=== PATIENT | male | born 1930 | race Caucasian/White ===

== ENCOUNTER 2017-03-19 15:36 | Inpatient (IN) | payer OTHER ==
[~2017-03-19] VITALS: Ht 177.8 cm; Wt 81.6 kg
--- NOTE | ~2017-03-19 | EEG ---
[facility] [place] [address] ELECTROENCEPHALOGRAM Name: NILA BABB Room #: 352-P ADM IN M.R.#: [id number] Admission: 03/19/17 Attend Phys: Ani Vasquez MD Discharge: Date of : 31 Report #: [id number] THIS REPORT FOR: //name// CC: Marciano Kathleen DATE OF SERVICE: 03/21/2017 This patient is being evaluated for altered mental status. EEG was done by placing the electrodes by standard 10-20 system of electrode placement. Both referential and sequential montages were used for recording. Background activity in this patient's EEG is about 7-8 Hz and 30 microvolt. Photic stimulation is unremarkable. No active epileptiform activity was noticed. IMPRESSION: This is an abnormal EEG, which typically occur with encephalopathy. However, is a nonspecific finding and it can occur with multiple other etiologies like effect of psychotropic medication, dementia, etc. Clinical correlation is recommended. Thank you very much for this referral. <ELECTRONICALLY SIGNED> By: Edward Gomez MD 03/24/17 0732 1704 1717 Edward Gomez MD /nt
--- NOTE | ~2017-03-19 | HC ---
[facility] [place] [address] CONSULTATION Name: BABBNILA Das Room #: 352-P ADM IN M.R.#: [id number] Admission: 03/19/17 Attend Phys: Ani Vasquez MD Discharge: Date of : 31 Report #: [id number] THIS REPORT FOR: //name// CC: Marciano Kathleen DATE OF SERVICE: 03/20/2017 HISTORY OF PRESENT ILLNESS: This is an 86-year-old male patient who was evaluated by me for any neurological etiology for the patient's altered mental status. This patient was living by himself. He fell down on Wednesday. He was admitted to an outside hospital. It is not clear whether he hit his head or not. He does not remember much about the fall because he is still not out. They did a hip surgery on him on Wednesday. He never became responsive after that. He continued to be drowsy, but he has shown a trend towards improvement. The best the family can tell there was no trauma to the head. REVIEW OF SYSTEMS: Extensive in this patient. He has a history of neuropathy, but he is not a diabetic according to the family. He has tremors and he has seen a neurologist in that regard. He had kidney stones and he had cardiac stents in the past. He apparently has a history of COPD. He does have a history of dementia, but the family indicates that it is mainly remembering the dates, which has been problem. He recently had a skin cancer removed from his face. This was the relevant 14-point review of systems, which I carried out with the family. PAST MEDICAL HISTORY: Negative for stroke or TIA. FAMILY HISTORY: Negative for early age stroke. SOCIAL HISTORY: He does not drink any alcohol or smoke. PHYSICAL EXAMINATION: Pretty limited because he is still drowsy, he is sleepy, but he wakes up. When he wakes up, he is able to recognize his sister. His speech looks somewhat slurred and difficult to understand. This has been going on at least since Wednesday. He did not know what month was it. His memory and fund of knowledge is poor. His cranial nerve examination 2-12 was attempted. It was very difficult to carry out, but I do not see any gross abnormality. He moves his upper extremities. He can wiggle his toes, but quantification of the strength is not possible. Similarly, I could not do a sensory exam on him or a good reflex or tone exam on him. He did not cooperate with the fundus examination. He is a very well-developed individual who does not have any dysmorphic features of eyes, ears and face. His hearing looks adequate. He has no thyroid mass. His heart does appear to be showing some murmur. His blood pressure is 121/61, respirations 20, pulse is 76, temperature is 98.2. [address] [address] CONSULTATION Name: NILA BABB Room #: 352-P [facility] IN M.R.#: [id number] Admission: 03/19/17 Attend Phys: Ani Vasquez MD Discharge: Date of : 31 Report #: [id number] LABORATORY DATA: His white count is 8.7, but he is anemic at hemoglobin of 9. They did a CTA of the chest, which showed no emboli. I do not see any notes, which indicate whether he ever had a CT of the head in [facility] or not. We will try to find out. IMPRESSION: This patient is encephalopathic after the surgery. The most likely cause will be delayed clearing of anesthesia, but this patient could have any anesthesia related complications or strokes and that cannot be excluded at this stage. Orthopedic surgeons are usually reluctant to allow MRI at such an early stage after replacement of the hip and it is unlikely to change any treatment. RECOMMENDATIONS: 1. We will try to get an EEG done in this patient. 2. We will try to see if the CT scan was done. 3. We will get a TSH, vitamin B12. 4. I think we should support him clinically and see how he does and whether he continued to improve. 5. We will do some other workup, but that is unlikely to change the treatment at this stage. I discussed all of it with the patient and the patient's daughter. I discussed their options in that regard. I discussed the pros and cons of their options in that regard. The family is agreeable with this plan. More than 50 minutes of time was spent taking care of this patient today and majority of that time was spent counseling the family and the patient and coordinating their care. Thank you very much for this referral. <ELECTRONICALLY SIGNED> By: Edward Gomez MD 03/24/17 0731 1016 1915 Edward Gomez MD /nt
--- NOTE | ~2017-03-19 | HC ---
[facility] [place] [address] CONSULTATION Name: NILA BABB Room #: 352-P ADM IN M.R.#: [id number] Admission: 03/19/17 Attend Phys: Ani Vasquez MD Discharge: Date of : 31 Report #: [id number] THIS REPORT FOR: //name// CC: Marciano Matute DO [facility] DATE OF SERVICE: 03/20/2017 CARDIOLOGY CONSULTATION HISTORY OF PRESENT ILLNESS: The patient is an 86-year-old single white male who was last seen in the hospital today after he was noted to have an elevated troponin. The history is obtained from the patient's daughter and some old records. The patient is currently confused and not communicating. According to the records, he has had previous coronary artery stenting, the last in 2014 apparently at [facility]. He stays fairly active despite his age, although he does use a cane. Apparently, he has had no recent chest pain, shortness of breath, syncope. I last saw him in the Cardiology Clinic in 11/2016 when he had no significant complaints. According to the daughter, 5 days ago, he had a skin cancer removed from the left side of his face. The next day he was at home when he tripped and fell. He complained of pain in his right hip. Daughter was staying with him. An ambulance was called. He was taken to [facility]. He was found to have a hip fracture. Three days ago, he underwent hip surgery. Since that time, he has been confused and combative. He was transferred to [facility] last night for further evaluation and treatment. PAST MEDICAL HISTORY: Otherwise significant for cataract surgery, sinus surgery, hypertension, hyperlipidemia. MEDICATIONS: Consist of Lipitor, Plavix, ranitidine. ALLERGIES: He has no known drug allergies. FAMILY HISTORY: Noncontributory. SOCIAL HISTORY: He is , lives in [place], [place] by himself, has not smoked in years. No alcohol abuse. He is a retired wood machinist. REVIEW OF SYSTEMS: There has been no history of stroke, asthma. He does have a lot of indigestion. Recently, he has complained of some lower abdominal pain. He has had some weight loss. No kidney disease, no cancer. No psychiatric illness. PHYSICAL EXAMINATION: [facility] [address] [place] [address] CONSULTATION Name: NILA BABB Room #: 352-P [facility] IN M.R.#: [id number] Admission: 03/19/17 Attend Phys: Ani Vasquez MD Discharge: Date of : 31 Report #: [id number] GENERAL: Elderly male lying in bed. He appeared in no acute distress. VITAL SIGNS: He had a blood pressure of 120/60, pulse is 80, he was afebrile. HEENT: He was anicteric. Conjunctivae pink. Mucous membranes appear dry. NECK: Veins do not appear distended. CHEST: Clear to auscultation. CARDIAC: Regular rate and rhythm. ABDOMEN: Soft. EXTREMITIES: Had no pitting edema. SKIN: Cool and dry. NEUROLOGIC: His eyes were open, but he would not follow commands. His workup so far he had a CT scan of the chest using a PE protocol this morning that showed no evidence of pulmonary embolus, aortic dissection or aneurysm. LABORATORY WORK: Sodium 142, albumin is 2.3. Troponin 0.38. White blood cell count 8.7, hemoglobin 9. IMPRESSION AND RECOMMENDATIONS: 1. Borderline troponin. No history of angina. I would recommend conservative approach. I would not recommend further intervention. I would continue Plavix. 2. Delirium. 3. Recent hip fracture. 4. Anemia. <ELECTRONICALLY SIGNED> By: Felipe Abad MD, FACC 03/22/17 1603 1150 39 Felipe Abad MD, FACC /nt
--- NOTE | ~2017-03-19 | EKG ---
[place] [address] [facility] [place] [address] ELECTROCARDIOGRAM REPORT Name: NILA BABB Room #: 352-P ADM IN M.R.#: [id number] Admission: 03/19/17 Attend Phys: Ani Vasquez MD Discharge: Date of : 31 Report #: [id number] THIS REPORT FOR: //name// [facility] Test Date: 2017-03-21 Test Time: 21:41:08 Pat Name: NILA BABB Department: Room: 352 P Gender: M Cardiac Nurse: rancho : 1930 Requested By: Jael Poole Order Number: [id number] MD: Negrito Henderson Measurements Intervals [place] Rate: 70 P: -20 [place]: 153 QRS: -39 QRSD: 134 T: -4 QT: 428 QTc: 462 Interpretive Statements Sinus rhythm Right bundle branch block Compared to ECG 06/06/2008 14:19:26 T-wave abnormality is now present Electronically Signed On 03-22-2017 7:50:32 MEDICAL RECEPTIONIST ASSISTANT by Negrito Henderson [email or web address] <ELECTRONICALLY SIGNED> By: Negrito Henderson MD, [facility] 03/22/17 0750 40 40 Negrito Henderson MD, [facility] /EPI
[2017-03-19 20:40] VITALS: BP 112/67
[2017-03-19 22:55] LABS: HEMATOCRIT 27.3 % (42.0-52.0); HEMOGLOBIN 9.3 gm/dL (14.0-18.0); MCH 28.9 pg (26.0-34.0); MCV 84.8 fL (80.0-100.0); RBC 3.22 mil/uL (4.50-6.00); RDW 15.8 % (10.5-14.5); WBC 9.1 thou/uL (4.0-11.0)
[2017-03-19 23:03] LABS: CALCIUM 8.4 mg/dL (8.5-10.1); CREATININE 1.2 mg/dL (0.7-1.3); POTASSIUM 4.6 mmol/L (3.5-5.1)
[2017-03-19 23:09] LABS: ALBUMIN 2.3 g/dL (3.4-5.0); TOTAL BILIRUBIN 0.5 mg/dL (<0.1-1.0); TOTAL PROTEIN 5.6 g/dL (6.4-8.2)
[2017-03-20 00:10] VITALS: BP 106/58
[2017-03-20 05:37] LABS: HEMATOCRIT 26.4 % (42.0-52.0); MCH 28.8 pg (26.0-34.0); MCHC 34.1 g/dL (28.0-37.0); MCV 84.4 fL (80.0-100.0); RBC 3.13 mil/uL (4.50-6.00); RDW 15.5 % (10.5-14.5); WBC 8.7 thou/uL (4.0-11.0)
[2017-03-20 05:59] LABS: CALCIUM 8.2 mg/dL (8.5-10.1); POTASSIUM 3.7 mmol/L (3.5-5.1); TROPONIN-I 0.38 ng/mL (<0.06)
[2017-03-20 06:00] VITALS: BP 109/77
[2017-03-20 08:00] VITALS: BP 121/61
[2017-03-20 12:00] VITALS: BP 114/57
[2017-03-20 16:00] VITALS: BP 141/121
[2017-03-20 20:20] VITALS: BP 121/76
[2017-03-21 03:53] LABS: HEMATOCRIT 26.6 % (42.0-52.0); MCH 28.5 pg (26.0-34.0); MCHC 33.7 g/dL (28.0-37.0); MCV 84.7 fL (80.0-100.0); RBC 3.14 mil/uL (4.50-6.00); RDW 15.9 % (10.5-14.5); WBC 8.5 thou/uL (4.0-11.0)
[2017-03-21 04:16] LABS: ALBUMIN 2.1 g/dL (3.4-5.0); CALCIUM 8.3 mg/dL (8.5-10.1); CREATININE 1.1 mg/dL (0.7-1.3); POTASSIUM 3.7 mmol/L (3.5-5.1); TOTAL BILIRUBIN 0.7 mg/dL (<0.1-1.0); TOTAL PROTEIN 5.3 g/dL (6.4-8.2)
[2017-03-21 04:20] VITALS: BP 128/63
[2017-03-21 07:47] VITALS: BP 132/65
[2017-03-21 11:45] VITALS: BP 128/42
[2017-03-21 14:52] LABS: URINE BILIRUBIN NEGATIVE (Negative); URINE BLOOD TRACE (Negative); URINE CLARITY CLEAR; URINE COLOR YELLOW; URINE GLUCOSE-RANDOM* NEGATIVE (Negative); URINE KETONES 3+ (Negative); URINE LEUKOCYTES NEGATIVE (Negative); URINE NITRITE NEGATIVE (Negative); URINE PROTEIN (DIPSTICK) NEGATIVE (Negative); URINE SPECIFIC GRAVITY 1.015 (1.005-1.035); URINE UROBILINOGEN 0.2 E.U./dl (0.2-1.0)
[2017-03-21 15:32] VITALS: BP 126/51
[2017-03-21 16:49] LABS: TSH 3.618 uIU/mL (0.358-3.740)
[2017-03-21 20:25] VITALS: BP 149/58
[2017-03-22 03:26] LABS: URINE CREATININE-RANDOM* 96.6 mg/dL
[2017-03-22 04:00] VITALS: BP 128/67
[2017-03-22 05:55] LABS: HEMOGLOBIN 8.7 gm/dL (14.0-18.0); MCH 28.3 pg (26.0-34.0); MCHC 33.6 g/dL (28.0-37.0); MCV 84.4 fL (80.0-100.0); RBC 3.09 mil/uL (4.50-6.00); RDW 15.7 % (10.5-14.5); WBC 7.8 thou/uL (4.0-11.0)
[2017-03-22 07:48] VITALS: BP 126/48
[2017-03-22 12:47] VITALS: BP 112/41
[2017-03-22 13:49] LABS: AMMONIA 21 umol/L (11-32)
[2017-03-22 13:50] LABS: MAGNESIUM 2.1 mg/dL (1.8-2.4); PHOSPHORUS 2.3 mg/dL (2.5-4.9)
[2017-03-22 13:53] LABS: CHOLESTEROL 106 mg/dL (<200); HDL CHOLESTEROL 34 mg/dL (>40); LDL CHOLESTEROL 49 mg/dL (<100); TC:HDL 3.1 Ratio (Not establshd); TRIGLYCERIDE 119 mg/dL (<150); VLDL 24 mg/dL (<40)
[2017-03-22 13:54] LABS: SERUM ASSESSMENT Clear
[2017-03-22 14:02] LABS: % SATURATION 21 % (20-39); IRON 33 ug/dL (65-175); TIBC 160 ug/dL (250-450)
[2017-03-22] MEDS ORDERED: PRIMIDONE 250M250 M1 PO (14:47)
[2017-03-22] MEDS ORDERED: ZANTAC 150MG T150 M1 PO (14:48)
[2017-03-22] MEDS ORDERED: FLOVENT DISKUS50 MCG INH (14:49)
[2017-03-22] MEDS ORDERED: SYMBICORT80 MCG/4.1 INH (14:51)
[2017-03-22] MEDS ORDERED: PLAVIX 75 MG TA75 M1 PO (14:56)
[2017-03-22] MEDS ORDERED: ATORVASTATIN CA40 MG PO (14:57)
[2017-03-22 15:54] VITALS: BP 106/36
[2017-03-22 20:00] VITALS: BP 121/76
[2017-03-23 04:50] VITALS: BP 115/57
[2017-03-23 07:22] VITALS: BP 124/60
[2017-03-23 16:10] VITALS: BP 140/64
[2017-03-23 19:50] VITALS: BP 137/59
[2017-03-24 04:00] VITALS: BP 111/62
[2017-03-24 08:47] VITALS: BP 116/44
[2017-03-24 11:41] VITALS: BP 108/36
[2017-03-24 17:28] VITALS: BP 116/41
[2017-03-24 20:35] VITALS: BP 124/31
[2017-03-25 05:50] VITALS: BP 90/32
[2017-03-25 08:43] VITALS: BP 129/58
[2017-03-25 16:00] VITALS: BP 119/41
[2017-03-25 20:29] VITALS: BP 119/53
[2017-03-26 03:30] VITALS: BP 124/53
[2017-03-26 07:45] VITALS: BP 150/60
[2017-03-26 11:20] VITALS: BP 119/56
[2017-03-26] MEDS ORDERED: SENNA8.6 MG PO (11:37)
[2017-03-26] MEDS ORDERED: FLOMAX0.4 MG PO (11:37)
[2017-03-26] MEDS ORDERED: MIRALAX17 GM PO (11:37)
[2017-03-26] MEDS ORDERED: ASPIRIN325 PO (11:37)
== END 2017-03-26 14:18 | DRG 70 ==
LOC: 3W 15:36
PROVIDERS: Hospitalist; Nurse Practitioner Family; Psychiatry & Neurology Neuromuscular Medicine; Registered Nurse
DX: G93.40 Encephalopathy, unspecified (principal); E43 Unspecified severe protein-calorie malnutrition; I47.2 Ventricular tachycardia; A09 Infectious gastroenteritis and colitis, unspecified; I10 Essential (primary) hypertension; E78.5 Hyperlipidemia, unspecified; I25.10 Atherosclerotic heart disease of native coronary artery without angina pectoris; D64.9 Anemia, unspecified; J44.9 Chronic obstructive pulmonary disease, unspecified; F03.90 Unspecified dementia, unspecified severity, without behavioral disturbance, psychotic disturbance, mood disturbance, and anxiety; K21.9 Gastro-esophageal reflux disease without esophagitis; Z96.641 Presence of right artificial hip joint; N20.9 Urinary calculus, unspecified; G62.9 Polyneuropathy, unspecified; N40.0 Benign prostatic hyperplasia without lower urinary tract symptoms; E86.0 Dehydration; F32.9 Major depressive disorder, single episode, unspecified; Z68.25 Body mass index [BMI] 25.0-25.9, adult; Z85.828 Personal history of other malignant neoplasm of skin; Z87.891 Personal history of nicotine dependence; Z95.5 Presence of coronary angioplasty implant and graft; Z98.42 Cataract extraction status, left eye; Z98.41 Cataract extraction status, right eye; Z87.81 Personal history of (healed) traumatic fracture
CPT/HCPCS: 10779; 10879